=== PATIENT | male | born 1970 | race Caucasian/White ===

== ENCOUNTER 2022-12-04 13:41 | Emergency (ER) | payer SELFPAY ==
[~2022-12-04] VITALS: Ht 182.9 cm; Wt 96.2 kg
[2022-12-04] MEDS ORDERED: DEXAMETHASONE 4 MG TAB PO STA (14:00)
== END 2022-12-04 15:23 | disposition home or self-care (01) ==
LOC: ER 13:51
DX: T78.3XXA Angioneurotic edema, initial encounter (principal); T46.4X5A Adverse effect of angiotensin-converting-enzyme inhibitors, initial encounter; F17.210 Nicotine dependence, cigarettes, uncomplicated
CPT/HCPCS: 99282; J8540